=== PATIENT | female | born 1985 | race African-American/Black ===

== ENCOUNTER 2018-03-15 19:03 | Emergency (ER) | payer MEDICARE, MEDICAID ==
[~2018-03-15] VITALS: Ht 170.2 cm; Wt 73.0 kg
[~2018-03-15 19:03] MED LIST: ARIP2TAB3
[2018-03-15] MEDS ORDERED: SODIUM CHLORIDE 0.9% 1,000 ML IV ONE (19:33)
[2018-03-15] MEDS ORDERED: ONDANSETRON HCL 4MG/2ML VIAL IV STA (19:33)
[2018-03-15 20:57] LABS: BASOPHILS % 0.7 % (0.0-2.0); EOSINOPHILS % 0.6 % (0.0-5.0); HEMATOCRIT. 30.4 % (36.0-48.0); HEMOGLOBIN. 10.3 g/dL (12.0-16.0); LYMPHOCYTES % 39.2 % (20.0-50.0); MEAN CORPUSCULAR HEMOGLOBIN 29.9 pg (28.0-32.0); MEAN CORPUSCULAR VOLUME 87.8 fL (81.0-99.0); MEAN PLATELET VOLUME 11.3 fl (7.4-10.4); MONOCYTES % 7.8 % (2.0-8.0); NEUTROPHILS % 51.7 % (40.0-76.0); PLATELET 189 x1000/uL (130-400); RED BLOOD CELL COUNT 3.46 mill/uL (4.2-5.4); RED CELL DISTRIBUTION WIDTH 13.5 % (11.6-14.6)
[2018-03-15 21:00] LABS: CHLORIDE 112 mEq/L (98-107)
[2018-03-15 21:04] LABS: ETHANOL BLOOD < 10 mg/dL
[2018-03-15 21:05] LABS: INR 1.2
[2018-03-15 21:08] LABS: HCG SCREEN NEGATIVE
[2018-03-15 21:09] LABS: CREATINE KINASE 659 IU/L (26-192)
[2018-03-15 21:40] VITALS: BP 100/64
[2018-03-15] MEDS ORDERED: ASPIRIN 81MG TABLET PO ONE (21:45)
[2018-03-15] MEDS ORDERED: ACETAMINOPHEN 650MG/20.3ML UDC GT PRN (22:45)
[2018-03-15] MEDS ORDERED: MAGNESIUM HYDROXIDE 400MG/5ML 30ML UDC PO PRN (22:45)
[2018-03-15] MEDS ORDERED: DIPHENHYDRAMINE 50MG/ML VIAL IV PRN (22:45)
[2018-03-15] MEDS ORDERED: DOCUSATE SODIUM 100MG CAPSULE PO PRN (22:45)
[2018-03-15] MEDS ORDERED: MAGNESIUM/ALUMINUM HYDROXIDE/SIMETHICONE 30ML UDC PO PRN (22:45)
[2018-03-15] MEDS ORDERED: POTASSIUM CHLORIDE 20MEQ TABLET SR PO ONE (22:45)
[2018-03-15] MEDS ORDERED: HYDROCODONE/ACETAMINOPHEN 5/325MG TABLET PO PRN (22:45)
[2018-03-15] MEDS ORDERED: ONDANSETRON HCL 4MG/2ML VIAL IV PRN (22:45)
[2018-03-15] MEDS ORDERED: LORAZEPAM 2MG/ML CPJ IV PRN (22:45)
[2018-03-15] MEDS ORDERED: ACETAMINOPHEN 650MG SUPP PR PRN (22:45)
[2018-03-15] MEDS ORDERED: GUAIFENESIN 200MG/10ML SUGAR FREE UDC PO PRN (22:45)
[2018-03-15] MEDS ORDERED: CLONIDINE 0.1MG TABLET PO PRN (22:45)
[2018-03-15] MEDS ORDERED: IPRATROPIUM/ALBUTEROL 0.5-3(2.5)MG/3ML NEB INH PRN (22:45)
[2018-03-15] MEDS ORDERED: NA PHOS,M-B/NA PHOS,DI-BA ENEMA 118ML PR PRN (22:45)
[2018-03-15] MEDS ORDERED: NITROGLYCERIN 0.4MG TABLET SL SL PRN (22:45)
[2018-03-15] MEDS ORDERED: ACETAMINOPHEN 325MG TABLET PO PRN (22:45)
[2018-03-16] MEDS ORDERED: SODIUM CHLORIDE 0.9% INJ 3ML FLUSH IVF SCH (06:00)
== END 2018-03-15 22:31 | disposition left against medical advice (07) ==
LOC: ER 19:56 → ENRESERV 22:27 → CANRESERV 22:27 → ER 22:31 → CANBEDREQ 23:50
DX: G92 Toxic encephalopathy (principal); M62.82 Rhabdomyolysis; F31.9 Bipolar disorder, unspecified; R79.89 Other specified abnormal findings of blood chemistry; T50.901A Poisoning by unspecified drugs, medicaments and biological substances, accidental (unintentional), initial encounter; Y92.9 Unspecified place or not applicable; Z79.82 Long term (current) use of aspirin
CPT/HCPCS: 36415; 80053; 82550; 82962; 84443; 84484; 84703; 85025; 85610; 93005; 96361; 96374; 99285; G0482; J2405; J7030